=== PATIENT | male | born 1950 | race Caucasian/White ===

== ENCOUNTER 2019-04-19 15:01 | Emergency (ER) | payer OTHER, BC ==
[2019-04-19 15:42] VITALS: BMI 35.5
--- NOTE | 2019-04-19 16:29 | PDOC ---
History of Present Illness - General Chief Complaint: Altered Mental Status Stated Complaint: AMS Time Seen by Provider: 04/19/19 16:28 History Source: Patient, Care Provider, Family - History of Present Illness Initial Comments: 68 year old male with PMH liver transplant (x15 years ago, 2/2 ETOH abuse), hepatic encephalopathy, DM, atrial fibrillation BIBA to ED from home with home health aid for AMS x1 week associated with jaundice and generalized weakness. Pt reported no complaints, including abdominal pain, fever, vomiting, diarrhea, chest pain, shortness of breath. Sister Shannan Henry ([phone])stated over the phone 2 Nights ago he was moaning, but reported he was not in any pain. She reported yesterday when she spoke with him he was coherent, but last night Transplant physician: Dr. Jake Araujo - [phone] - [facility] x15 years ago Home Health Aide at Bedside: Jody Monaco [phone] - comes to home 2X a week PCP: Dr. Nunu Morales, and Sherin TONG [phone] Colonoscopy x6 months ago normal. ETOH abuse - last drink x3 years ago; vodka Drug use - denied Nicotine use - never smoker Past History - Past Medical History Allergies/Adverse Reactions: Allergies Allergy/AdvReac Type Severity Reaction Status Date / Time No Known Allergies Allergy Verified 04/19/19 18:25 Home Medications: Ambulatory Orders Aspirin [ASA -] 81 mg PO DAILY 06/27/14 Folic Acid - 1 mg PO DAILY 06/27/14 Mycophenolate Mofetil 0 mg PO ASDIR 06/27/14 Tacrolimus 0 mg PO ASDIR 06/27/14 Ursodiol 0 mg PO ASDIR 06/27/14 Glipizide [Glipizide ER] 0 mg PO DAILY 07/30/14 COPD: No Diabetes: Yes HTN: Yes Liver Disease: Yes - Immunization History Td Vaccination: No TDAP Vaccination: No Immunization Up to Date: No - Suicide/Smoking/Psychosocial Hx Smoking History: Never smoked Have you smoked in the past 12 months: No Hx Alcohol Use: No Drug/Substance Use Hx: No Substance Use Type: None Hx Substance Use Treatment: No Review of Systems - Review of Systems Able to Perform ROS?: Yes Comments:: General: denied fever, chills, generalized weakness. HEENT: denied sore throat, rhinorrhea, ear pain. Cardiovascular: denied chest pain, palpitations, syncope, diaphoresis. Respiratory: denied shortness of breath, cough, sputum production, hemoptysis. Gastrointestinal: denied abdominal pain, nausea, vomiting, diarrhea, constipation, blood in stool. Genitourinary: denied dysuria, increased urinary frequency, hematuria, urinary incontinence, flank pain. Back: denied back pain. Musculoskeletal: denied joint pain, muscle pain, joint swelling. Neurological: admitted to [facility]. denied headache, dizziness, numbness, tingling, weakness. Integumentary: denied rash, laceration, abrasion. Hematologic/Lymphatic: denied bruising or bleeding. *Physical Exam - Vital Signs Last Vital Signs Temp Pulse Resp BP Pulse Ox 98.0 F 96 H 17 95/65 99 04/19/19 15:15 04/19/19 15:15 04/19/19 15:15 04/19/19 15:15 04/19/19 15:15 - Physical Exam Comments: Constitutional: Well-nourished, Well-developed, appearing stated age. obese. HEENT: head is normocephalic, atraumatic. EOMI. PERRLA. Neck: supple. Full ROM. Cardiovascular: regular heart rhythm. no murmurs. no pericardial friction rub. Respiratory: clear to auscultation bilaterally. no crackles, rhonchi or wheezing. no stridor. Gastrointestinal: soft, protuberant. RUQ tenderness with positive murphys. normal bowel sounds. no rebound, guarding. Extremities: peripheral pulses intact. no lower extremity edema. Neurological: CN 2-12 grossly intact. moves all four extremities. Psych: awake, alert, oriented x3. follows commands. answers questions appropriately. ED Treatment Course - LABORATORY CBC & Chemistry Diagram: 04/19/19 17:38 04/19/19 19:16 Medical Decision Making - Medical Decision Making 68 year old male with above PMH presented to ED for AMS x1 week, generalized weakness and jaundice today. Examination significant for RUQ tenderness/positive murphys. Initial Vital Signs Temp Pulse Resp BP Pulse Ox 98.0 F 96 H 17 95/65 99 04/19/19 15:15 04/19/19 15:15 04/19/19 15:15 04/19/19 15:15 04/19/19 15:15 Afebrile. No tachycardia. No tachypnea. Mild hypotension. No hypoxia on room air. Labs ordered: CBC, CMP, lipase, ammonia, VBG, acetaminophen level, acetone, ETOH , salicyclate, blood cultures Imaging ordered: RUQ US Medications ordered: Zosyn EKG performed at 1537: rate 95, regular rhythm, normal axis, normal intervals, no acute ST changes, no peaked T. 04/19/19 18:33 Vital Signs Pulse Rate 96 H 04/19/19 18:21 Respiratory Rate 17 04/19/19 18:21 Blood Pressure 130/78 04/19/19 18:21 O2 Sat by Pulse Oximetry (%) 95 04/19/19 18:21 Hypotension improved. CBC WBC 12.8 K/mm3 (4.0-10.0) H 04/19/19 17:38 RBC 5.53 M/mm3 (4.00-5.60) 04/19/19 17:38 Hgb 11.3 GM/dL (11.7-16.9) L 04/19/19 17:38 Hct 34.9 % (35.4-49) L D 04/19/19 17:38 MCV 63.0 fl (80-96) L 04/19/19 17:38 MCH 20.4 pg (25.7-33.7) L 04/19/19 17:38 MCHC 32.3 g/dl (32.0-35.9) 04/19/19 17:38 RDW 16.9 % (11.9-15.9) H 04/19/19 17:38 Plt Count 117 K/MM3 (134-434) L D 04/19/19 17:38 MPV 9.2 fl (7.5-11.1) 04/19/19 17:38 Absolute Neuts (auto) 11.1 K/mm3 (1.5-8.0) H 04/19/19 17:38 Neutrophils % 86.8 % (42.8-82.8) H D 04/19/19 17:38 Lymphocytes % 8.4 % (8-40) D 04/19/19 17:38 Monocytes % 4.2 % (3.8-10.2) 04/19/19 17:38 Eosinophils % 0.2 % (0-4.5) D 04/19/19 17:38 Basophils % 0.4 % (0-2.0) 04/19/19 17:38 Nucleated RBC % 0 % (0-0) 04/19/19 17:38 Leukocytosis with left shift. Mild microcytic anemia. 04/19/19 19:07 VBG - no acidosis. no CO2 retention. CMP Sodium 135 mmol/L (136-145) L 04/19/19 17:20 Potassium 6.6 mmol/L (3.5-5.1) H* 04/19/19 17:20 Chloride 99 mmol/L (98-107) 04/19/19 17:20 Carbon Dioxide 28 mmol/L (21-32) 04/19/19 17:20 Anion Gap 8 MMOL/L (8-16) 04/19/19 17:20 BUN 48.7 mg/dL (7-18) H 04/19/19 17:20 Creatinine 1.6 mg/dL (0.55-1.3) H 04/19/19 17:20 Est GFR (CKD-EPI)AfAm 51.27 04/19/19 17:20 Est GFR (CKD-EPI)NonAf 44.24 04/19/19 17:20 Random Glucose 361 mg/dL (74-106) H* 04/19/19 17:20 Lactic Acid 2.8 mmol/L (0.4-2.0) H* 04/19/19 17:20 Calcium 8.8 mg/dL (8.5-10.1) 04/19/19 17:20 Total Bilirubin 6.6 mg/dL (0.2-1) H 04/19/19 17:20 AST 73 U/L (15-37) H 04/19/19 17:20 ALT 19 U/L (13-61) 04/19/19 17:20 Alkaline Phosphatase 126 U/L (45-117) H 04/19/19 17:20 Ammonia 127.40 umol/L (11-32) H 04/19/19 17:20 Troponin I 0.00 ng/ml (0.00-0.05) 04/19/19 17:20 Total Protein 6.2 g/dl (6.4-8.2) L 04/19/19 17:20 Albumin 2.2 g/dl (3.4-5.0) L 04/19/19 17:20 Lipase 104 U/L (73-393) 04/19/19 17:20 Mild hyponatremia. Hyperkalemia - lab reported moderately hemolyzed. -Calcium gluconate ordered -EKG shows no hyperkalemia changes -Repeat CMP ordered HANS Lactic acidosis Elevated ammonia AST/ALP elevation. Lipase wnl Troponin 0.00 Acetone negative Urine Test Results Urine Color [place] 04/19/19 18:08 Urine Appearance Cloudy 04/19/19 18:08 Urine pH 5.0 (5.0-8.0) 04/19/19 18:08 Ur Specific [place] 1.023 (1.010-1.035) 04/19/19 18:08 Urine Protein Negative (NEGATIVE) 04/19/19 18:08 Urine Glucose (UA) 3+ (NEGATIVE) H 04/19/19 18:08 Urine Ketones Trace (NEGATIVE) H 04/19/19 18:08 Urine Blood 3+ (NEGATIVE) H 04/19/19 18:08 Urine Nitrite Positive (NEGATIVE) H 04/19/19 18:08 Urine Bilirubin 1+ (NEGATIVE) H 04/19/19 18:08 Ur Leukocyte Esterase 1+ (NEGATIVE) H 04/19/19 18:08 WBC>5 UTI -Zosyn will cover Pending RUQ US Medications ordered: normal saline 500 cc bolus Lab work suggests against CO2 retention, DKA for cause of AMS. 04/19/19 20:14 Vital Signs Temperature 98.5 F 04/19/19 20:08 Pulse Rate 91 H 04/19/19 20:13 Respiratory Rate 18 04/19/19 20:13 Blood Pressure 118/81 04/19/19 20:13 O2 Sat by Pulse Oximetry (%) 98 04/19/19 20:13 Afebrile rectally. No tachycardia. No tachypnea. No hypotension. No hypoxia on room air. 04/19/19 21:07 US report: Name: [facility] DEPARTMENT OF RADIOLOGY Phys: Sirena Spears MD : [id number] Age: 68 Sex: M [facility] Acct: [id number] Loc: [address] Exam Date: 04/19/19 Status: [place] [address] Unit Number: [id number] EXAM#: TYPE/EXAM: RESULT: [id number] US/ABDOMEN US -LIMITED Right upper quadrant abdominal ultrasound Clinical information given: status post remote liver transplant Status post liver transplant. No obvious mass lesion or abnormal echogenicity is seen. The main portal vein as well as the hepatic veins appear to be patent with physiologic flow direction. Status post cholecystectomy. The common bile duct appears to be dilated with a 1 cm diameter. No gross intraductal calculus is identified with the limitations of transabdominal sonography. The pancreas could not be adequately visualized due to obscuring bowel gas. No free intraperitoneal fluid is seen. There is no hydronephrosis. The right kidney demonstrates no definite sonographic pathology. Impression: As noted above. Reported By: Mauro Villatoro MD 04/19/192103 CMP Sodium 138 mmol/L (136-145) 04/19/19 19:16 Potassium 4.7 mmol/L (3.5-5.1) 04/19/19 19:16 Chloride 101 mmol/L (98-107) 04/19/19 19:16 Carbon Dioxide 30 mmol/L (21-32) 04/19/19 19:16 Anion Gap 7 MMOL/L (8-16) L 04/19/19 19:16 BUN 50.4 mg/dL (7-18) H 04/19/19 19:16 Creatinine 1.7 mg/dL (0.55-1.3) H 04/19/19 19:16 Est GFR (CKD-EPI)AfAm 47.65 04/19/19 19:16 Est GFR (CKD-EPI)NonAf 41.11 04/19/19 19:16 Random Glucose 381 mg/dL (74-106) H* 04/19/19 19:16 Calcium 9.3 mg/dL (8.5-10.1) 04/19/19 19:16 Total Bilirubin 6.4 mg/dL (0.2-1) H 04/19/19 19:16 AST 13 U/L (15-37) L 04/19/19 19:16 ALT 17 U/L (13-61) 04/19/19 19:16 Alkaline Phosphatase 115 U/L (45-117) 04/19/19 19:16 Total Protein 5.8 g/dl (6.4-8.2) L 04/19/19 19:16 Albumin 2.2 g/dl (3.4-5.0) L 04/19/19 19:16 Prior hyperkalemia likely due to hemolyzation. Cr unchanged. - Will continue to slowly hydrate Hyperglycemia unchanged. -Will continue to slowly hydrate [facility] to be paged for rec/possible transfer. 04/19/19 21:32 I spoke with Melissa Carrera, environment coordinator, will discuss with Dr. Arechiga, Hepatology attending. Transfer center reported they will call back with update. 04/19/19 21:51 Pt signed out to Dr. Alvarez, EM Resident. Pending update from Transfer Center. *DC/Admit/Observation/Transfer Diagnosis at time of Disposition: Altered mental status, Increased ammonia level, History of liver transplant, Leukocytosis, Microcytic anemia, Lactic acidosis, Hyperglycemia, UTI (urinary tract infection), Hepatic encephalopathy - Discharge Dispostion Condition at time of disposition: Stable - Referrals - Patient Instructions - Post Discharge Activity
[2019-04-19] MEDS ORDERED: PIPERACILLIN/TAZOB 4.5 GM 4.5 GM in DEXTROSE 5%-WATER 100 ML IVPB ONE (16:56)
--- NOTE | 2019-04-19 16:56 | PDOC ---
Attending Attestation - Resident Resident Name: Jaky Mayo - ED Attending Attestation I have performed the following: I have examined & evaluated the patient, The case was reviewed & discussed with the resident, I agree w/resident's findings & plan, Exceptions are as noted - HPI HPI: 04/19/19 16:56 68yo M hx DM, Afib, GERD, liver transplant 2009 at [facility] 2/2 etoh abuse presents with AMS x 1 week and 3 days of generalized weakness and jaundice. History is from patients WAREHOUSE COORDINATOR as pt currently denies any symptoms. Pt's WAREHOUSE COORDINATOR reports pt thought last wk was thanksgiving and has been confused about what day it is which is abnormal. In addition, while the pt is typically is able to get out of bed and get dressed with minimal assistance, WAREHOUSE COORDINATOR reports pt was unable to get out of bed for an hour and she was barely able to get him dressed. She also states that his color was the most alarming change she noted today that prompted ED visit. Denies recent fevers, chills, headache, focal weakness/numbness, abd pain, N/V/D , LE edema. - Physicial Exam PE: 04/19/19 17:38 GENERAL: Awake, alert, and oriented to name and place, in no acute distress HEAD: No signs of trauma EYES: PERRLA, EOMI, +scleral icterus, conjunctiva clear ENT: Nares patent, oropharynx clear without exudates. Moist mucosa NECK: Normal ROM, supple, no lymphadenopathy, JVD, or masses LUNGS: Breath sounds equal, clear to auscultation bilaterally. No wheezes, and no crackles HEART: Regular rate and rhythm, normal S1 and S2, no murmurs, rubs or gallops ABDOMEN: Soft, +diffuse ttp, normoactive bowel sounds. No guarding, no rebound. No masses. +dullness to percussion EXTREMITIES: Normal range of motion, 1+ pitting edema to mid calves b/l. No clubbing or cyanosis. No cords, erythema. NEUROLOGICAL: Normal speech, cranial nerves intact, equal strength and sensation b/l SKIN: Warm, Dry, normal turgor, no rashes or lesions noted. - Medical Decision Making 04/19/19 18:09 68yo M hx Liver transplant 2/2 etoh abuse (last drink 3 years ago) presents to the ED with weakness, confusion, jaundice Vitals with hypotension, tachycardia DDx includes cholangitis vs sbp vs liver failure/rejection Plan for labs, US, possible tap Given vitals abnormalities, immunosuppressive status, pt was covered with zosyn Anticipate admission vs transfer Labs concerning for hyperbilirubinemia to 6, elevated ammonia, low albumin all c /f liver failure Pt also with elevated creatinine, possible hepatorenal syndrome? US with no sig ascites to tap Case discussed with [facility] liver community marketing coordinator Pt accepted for transfer to Dr. Celestin Heart Score/ECG Review #1 04/19/19 18:12 EKG read and int by me: NSR, rate 95, Normal axis and invervals. No JANNETTE. TWI III
[2019-04-19] MEDS ORDERED: CEFTRIAXONE 1 GM in DEXTROSE 5%-WATER - 100 ML IVPB ONE (17:44)
[2019-04-19 17:48] LABS: BASO % 0.4 % (0-2.0); EOS % 0.2 % (0-4.5); HEMATOCRIT 34.9 % (35.4-49); HEMOGLOBIN 11.3 GM/dL (11.7-16.9); LYMPH % 8.4 % (8-40); MCH 20.4 pg (25.7-33.7); MCHC 32.3 g/dl (32.0-35.9); MEAN PLT VOLUME 9.2 fl (7.5-11.1); MONO % 4.2 % (3.8-10.2); NEUT % 86.8 % (42.8-82.8); PLATELET COUNT 117 K/MM3 (134-434); RBC 5.53 M/mm3 (4.00-5.60); RDW 16.9 % (11.9-15.9); WHITE BLOOD COUNT 12.8 K/mm3 (4.0-10.0)
[2019-04-19 17:56] LABS: VENOUS PC02 42.7 mmHg (41-51); VENOUS PH 7.41 (7.31-7.41); VENOUS PO2 43.5 mmHg (30-40)
[2019-04-19] MEDS ORDERED: PIPERACILLIN/TAZOB 4.5 GM 4.5 GM/100 ML BAG IVPB ONE (18:06)
[2019-04-19 18:15] LABS: INR 1.53 (0.83-1.09); PROTHROMBIN TIME (PATIENT) 18.1 SEC (9.7-13.0)
[2019-04-19 18:26] LABS: ALBUMIN 2.2 g/dl (3.4-5.0); ALK PHOS 126 U/L (45-117); ANION GAP 8 MMOL/L (8-16); BILIRUBIN,TOTAL 6.6 mg/dL (0.2-1); BLOOD UREA NITROGEN 48.7 mg/dL (7-18); CALCIUM 8.8 mg/dL (8.5-10.1); CHLORIDE 99 mmol/L (98-107); CO2 28 mmol/L (21-32); CREATININE 1.6 mg/dL (0.55-1.3); LIPASE 104 U/L (73-393); SGOT/AST 73 U/L (15-37); SGPT/ALT 19 U/L (13-61); SODIUM 135 mmol/L (136-145); TOT PROT 6.2 g/dl (6.4-8.2)
[2019-04-19] MEDS ORDERED: CALCIUM GLUCONATE 10% - 1,000 MG/10 ML VIAL IVPUSH ONE (18:32)
[2019-04-19 18:33] LABS: GLUCOSE,RANDOM 361 mg/dL (74-106); POTASSIUM 6.6 mmol/L (3.5-5.1)
[2019-04-19 18:50] LABS: EPI CELLS 6.9 /HPF (0-5/HPF); HYALINE CASTS 31 /lpf (0-8); URINE APPEARANCE CLOUDY; URINE BACTERIA 2781.7 /hpf (NEGATIVE); URINE BILIRUBIN 1+ (NEGATIVE); URINE COLOR ORANGE; URINE GLUCOSE (UA) 3+ (NEGATIVE); URINE KETONE TRACE (NEGATIVE); URINE LEUK ESTERASE 1+ (NEGATIVE); URINE NITRITE POSITIVE (NEGATIVE); URINE PROTEIN NEGATIVE (NEGATIVE); URINE WBC 16 /hpf (0-5)
[2019-04-19 18:59] LABS: ANISOCYTOSIS 2+; OVALOCYTE 2+; PLATELET ESTIMATE DECREASED; TARGET CELLS 2+
[2019-04-19] MEDS ORDERED: SODIUM CHLORIDE 500 ML IV STA (19:00)
[2019-04-19] MEDS ORDERED: CALCIUM GLUCONATE 10% - 1,000 MG/10 ML VIAL ONE (19:43)
[2019-04-19 20:31] LABS: ALBUMIN 2.2 g/dl (3.4-5.0); ALK PHOS 115 U/L (45-117); ANION GAP 7 MMOL/L (8-16); BILIRUBIN,TOTAL 6.4 mg/dL (0.2-1); BLOOD UREA NITROGEN 50.4 mg/dL (7-18); CALCIUM 9.3 mg/dL (8.5-10.1); CHLORIDE 101 mmol/L (98-107); CO2 30 mmol/L (21-32); CREATININE 1.7 mg/dL (0.55-1.3); POTASSIUM 4.7 mmol/L (3.5-5.1); SGOT/AST 13 U/L (15-37); SGPT/ALT 17 U/L (13-61); SODIUM 138 mmol/L (136-145); TOT PROT 5.8 g/dl (6.4-8.2)
[2019-04-19 20:34] LABS: GLUCOSE,RANDOM 381 mg/dL (74-106)
[2019-04-19 22:17] VITALS: BP 115/77; PULSE 86
[2019-04-19 22:38] LABS: URINE CRYSTALS AMORPHOUS URATES /hpf; URINE RBC 6.1 /hpf (0-4)
[2019-04-19 23:50] VITALS: TEMP 98.7
--- NOTE | 2019-04-20 07:29 | PDOC ---
*Physical Exam - Vital Signs Last Vital Signs Temp Pulse Resp BP Pulse Ox 98.7 F 86 20 115/77 98 04/19/19 23:47 04/19/19 23:47 04/19/19 23:47 04/19/19 23:47 04/19/19 22:16 ED Treatment Course - LABORATORY CBC & Chemistry Diagram: 04/19/19 17:38 04/19/19 19:16 - ADDITIONAL ORDERS Additional order review: Laboratory Results 04/19/19 04/19/19 04/19/19 23:17 19:16 18:08 Sodium 138 Potassium 4.7 Chloride 101 Carbon Dioxide 30 Anion Gap 7 L BUN 50.4 H Creatinine 1.7 H Est GFR (CKD-EPI)AfAm 47.65 Est GFR (CKD-EPI)NonAf 41.11 POC Glucometer 292 Random Glucose 381 H* Calcium 9.3 Total Bilirubin 6.4 H AST 13 L ALT 17 Alkaline Phosphatase 115 Total Protein 5.8 L Albumin 2.2 L Urine RBC (Auto) 6.1 U Pathogenic Cast Auto None seen U Sm Round Cell (Auto) None seen Urine Crystals (Auto) Amorphous urates Alcohol, Quantitative < 3.0 04/19/19 04/19/19 23:17 17:38 RBC 5.53 MCV 63.0 L MCHC 32.3 RDW 16.9 H MPV 9.2 Neutrophils % 86.8 H D Lymphocytes % 8.4 D Monocytes % 4.2 Eosinophils % 0.2 D Basophils % 0.4 POC Glucometer 292 - Medications Given in the ED: ED Medications Discontinued Medications Generic Name Dose Route Start Last Admin Trade Name Freq PRN Reason Stop Dose Admin Calcium Gluconate 1,000 mg 04/19/19 18:32 04/19/19 20:04 Calcium Gluconate 10% - IVPUSH 04/19/19 18:33 1,000 mg ONCE ONE Administration Piperacillin Sod/Tazobactam 100 mls @ 200 mls/hr 04/19/19 16:56 04/19/19 18: 17 Sod 4.5 gm/ Dextrose IVPB 04/19/19 17:25 200 mls/hr ONCE ONE Administration Protocol Ceftriaxone Sodium 1 gm/ 100 mls @ 200 mls/hr 04/19/19 17:44 04/19/19 18:58 Dextrose IVPB 04/19/19 18:13 Not Given ONCE ONE Sodium Chloride 500 mls @ 500 mls/hr 04/19/19 19:00 04/19/19 20:04 Normal Saline - IV 04/19/19 19:59 500 mls/hr ASDIR STA Administration Medical Decision Making - Medical Decision Making 04/20/19 07:42 68 year old male with PMH liver transplant (x15 years ago, 2/2 ETOH abuse), hepatic encephalopathy, DM, atrial fibrillation BIBA to ED from home with home health aid for AMS x1 week associated with jaundice and generalized weakness. Pt reported no complaints, including abdominal pain, fever, vomiting, diarrhea, chest pain, shortness of breath. pending transfer to [facility]. Accpeted ED-ED transfer Dr. Celestin *DC/Admit/Observation/Transfer Diagnosis at time of Disposition: Altered mental status, Increased ammonia level, History of liver transplant, Leukocytosis, Microcytic anemia, Lactic acidosis, Hyperglycemia, UTI (urinary tract infection), Hepatic encephalopathy - Discharge Dispostion Disposition: TRANSFER ACUTE CARE/OTHER HOSP Condition at time of disposition: Stable - Referrals - Patient Instructions - Post Discharge Activity
--- NOTE | 2019-04-20 11:11 | EKG ---
Test Reason : Blood Pressure : / mmHG Vent. Rate : 095 BPM Atrial Rate : 095 BPM P-R Int : 122 ms QRS Dur : 080 ms QT Int : 376 ms P-R-T Axes : 031 022 020 degrees QTc Int : 472 ms NORMAL SINUS RHYTHM NONSPECIFIC ST ABNORMALITY Confirmed by BISMARK DALY MD ([id number]) on 04/20/2019 11:10:51 AM Referred By: Confirmed By:BISMARK DALY MD
== END 2019-04-19 23:52 | disposition short-term general hospital (02) ==
LOC: JER 15:01
PROC: 3E033GC Introduction of Other Therapeutic Substance into Peripheral Vein, Percutaneous Approach (ICD-10-PCS; principal; 2019-04-19)
PROC: 3E03329 Introduction of Other Anti-infective into Peripheral Vein, Percutaneous Approach (ICD-10-PCS; 2019-04-19)
PROC: 3E0337Z Introduction of Electrolytic and Water Balance Substance into Peripheral Vein, Percutaneous Approach (ICD-10-PCS; 2019-04-19)
DX: R41.82 Altered mental status, unspecified (principal); Z94.4 Liver transplant status; D72.829 Elevated white blood cell count, unspecified; D50.9 Iron deficiency anemia, unspecified; R73.9 Hyperglycemia, unspecified; N39.0 Urinary tract infection, site not specified; G93.49 Other encephalopathy
CPT/HCPCS: 36415; 76705-TC; 80053; 80307; 81003; 82009; 82140; 82803; 82962; 83605; 83690; 84484; 85025; 85610; 85730; 87040; 87086; 87186; 93005; 93010; 99285-25; J7030

== ENCOUNTER 2019-09-20 10:47 | Inpatient (IN) | payer OTHER, BC ==
[2019-09-20 11:06] VITALS: TEMP 98.1; BMI 28.2
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
[2019-09-20 13:33] LABS: BASO % 1.4 % (0-2.0); EOS % 0.1 % (0-4.5); HEMATOCRIT 40.5 % (35.4-49); LYMPH % 4.2 % (8-40); MCH 20.5 pg (25.7-33.7); MEAN CELL VOLUME 64.1 fl (80-96); MEAN PLT VOLUME 10.2 fl (7.5-11.1); MONO % 4.5 % (3.8-10.2); NEUT % 89.8 % (42.8-82.8); PLATELET COUNT 163 K/MM3 (134-434); RBC 6.32 M/mm3 (4.00-5.60); RDW 15.9 % (11.9-15.9); WHITE BLOOD COUNT 12.1 K/mm3 (4.0-10.0)
[2019-09-20 13:46] LABS: INR 1.13 (0.83-1.09); PROTHROMBIN TIME (PATIENT) 13.4 SEC (9.7-13.0)
[2019-09-20 14:18] LABS: ANISOCYTOSIS 3+; MACROCYTOSIS 0; PLATELET ESTIMATE DECREASED
[2019-09-20 14:20] LABS: ALBUMIN 3.6 g/dl (3.4-5.0); BILIRUBIN,TOTAL 2.2 mg/dL (0.2-1); BLOOD UREA NITROGEN 37.1 mg/dL (7-18); CALCIUM 9.2 mg/dL (8.5-10.1); CREATININE 1.6 mg/dL (0.55-1.3); POTASSIUM 5.7 mmol/L (3.5-5.1); TOT PROT 7.4 g/dl (6.4-8.2)
[2019-09-20] MEDS ORDERED: SODIUM CHLORIDE 0.9% 500 ML INFUS.BAG IV ONE (15:46)
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
[2019-09-20 17:11] LABS: ALBUMIN 3.4 g/dl (3.4-5.0); BLOOD UREA NITROGEN 37.9 mg/dL (7-18); CALCIUM 9.3 mg/dL (8.5-10.1); CREATININE 1.6 mg/dL (0.55-1.3); POTASSIUM 4.9 mmol/L (3.5-5.1)
[2019-09-20 19:06] LABS: URINE APPEARANCE CLEAR; URINE BILIRUBIN NEGATIVE (NEGATIVE); URINE COLOR ORANGE; URINE GLUCOSE (UA) 2+ (NEGATIVE); URINE KETONE 1+ (NEGATIVE); URINE LEUK ESTERASE NEGATIVE (NEGATIVE); URINE NITRITE NEGATIVE (NEGATIVE); URINE PROTEIN NEGATIVE (NEGATIVE); URINE UROBILINOGEN 0.2 mg/dL (0.2-1.0)
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
[2019-09-20] MEDS ORDERED: SODIUM CHLORIDE 1,000 ML IV SCH (21:00)
[2019-09-20] MEDS ORDERED: HEPARIN NA (PORCINE) 5,000 UNITS/ML 1ML VIAL ONE (23:58)
[2019-09-21] MEDS: HEPARIN NA (PORCINE) 5,000 UNITS/ML 1ML VIAL SQ SCH ×2 (00:11→07:13)
[2019-09-21] MEDS: INSULIN SLIDING SCALE (NOVOLOG) 1 VIAL SQ SCH ×2 (00:12→08:42)
[2019-09-21 07:04] LABS: BASO % 0.5 % (0-2.0); EOS % 0.8 % (0-4.5); HEMATOCRIT 34.9 % (35.4-49); HEMOGLOBIN 11.3 GM/dL (11.7-16.9); LYMPH % 18.4 % (8-40); MCH 20.8 pg (25.7-33.7); MCHC 32.3 g/dl (32.0-35.9); MEAN CELL VOLUME 64.3 fl (80-96); MEAN PLT VOLUME 10.6 fl (7.5-11.1); MONO % 7.8 % (3.8-10.2); NEUT % 72.5 % (42.8-82.8); PLATELET COUNT 141 K/MM3 (134-434); RBC 5.42 M/mm3 (4.00-5.60); WHITE BLOOD COUNT 7.8 K/mm3 (4.0-10.0)
[2019-09-21] MEDS ORDERED: HEPARIN NA (PORCINE) 5,000 UNITS/ML 1ML VIAL ONE (07:10)
[2019-09-21 07:26] LABS: INR 1.23 (0.83-1.09); PROTHROMBIN TIME (PATIENT) 14.5 SEC (9.7-13.0)
[2019-09-21 07:29] LABS: ACTIVATED PTT 26.2 SECONDS (25.2-36.5)
[2019-09-21 07:40] LABS: BILIRUBIN,DIRECT 0.6 mg/dL (0.0-0.2); BILIRUBIN,TOTAL 1.9 mg/dL (0.2-1); BLOOD UREA NITROGEN 34.4 mg/dL (7-18); CALCIUM 8.7 mg/dL (8.5-10.1); CREATININE 1.4 mg/dL (0.55-1.3); MAGNESIUM 1.7 mg/dL (1.8-2.4); PHOSPHOROUS 2.8 mg/dL (2.5-4.9); POTASSIUM 4.3 mmol/L (3.5-5.1); TOT PROT 6.1 g/dl (6.4-8.2)
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
[2019-09-21 11:36] VITALS: BP 119/75; PULSE 75
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
--- NOTE | 2019-09-22 13:54 | EKG ---
Test Reason : Blood Pressure : / mmHG Vent. Rate : 095 BPM Atrial Rate : 095 BPM P-R Int : 134 ms QRS Dur : 070 ms QT Int : 366 ms P-R-T Axes : 033 015 017 degrees QTc Int : 459 ms POOR DATA QUALITY, INTERPRETATION MAY BE ADVERSELY AFFECTED NORMAL SINUS RHYTHM LOW VOLTAGE QRS NONSPECIFIC ST ABNORMALITY WHEN COMPARED WITH ECG OF 19-APR-2019 15:37, NO SIGNIFICANT CHANGE WAS FOUND Confirmed by BISMARK DALY MD ([id number]) on 09/22/2019 1:53:50 PM Referred By: Confirmed By:BISMARK DALY MD
== END 2019-09-21 11:30 | disposition short-term general hospital (02) | DRG 914 ==
LOC: JER 10:47 → SUPCPDRO 10:47 → JERBED 20:17
PROVIDERS: ADMIT Internal Medicine; ATTEND Internal Medicine
DX: S09.93XA Unspecified injury of face, initial encounter (principal); S82.201A Unspecified fracture of shaft of right tibia, initial encounter for closed fracture; Z94.4 Liver transplant status; N17.9 Acute kidney failure, unspecified; E11.65 Type 2 diabetes mellitus with hyperglycemia; I48.91 Unspecified atrial fibrillation; D72.829 Elevated white blood cell count, unspecified; I10 Essential (primary) hypertension; S82.401A Unspecified fracture of shaft of right fibula, initial encounter for closed fracture; Y08.89XA Assault by other specified means, initial encounter; Y93.9 Activity, unspecified; Y92.098 Other place in other non-institutional residence as the place of occurrence of the external cause; Y99.9 Unspecified external cause status
CPT/HCPCS: 36415; 70450-TC; 70486-TC; 71045-TC-FY; 72125-TC; 72170-TC-FY; 73502-TC-RT-FY; 73610-TC-RT-FY; 73630-TC-RT-FY; 80053; 81003; 82140; 82248; 82550; 82962; 83036; 83735; 84100; 85025; 85610; 85730; 87086; 93005; 93010; 99285-25; J1644